=== PATIENT | male | born 1930 | race Caucasian/White ===

== ENCOUNTER 2016-12-19 13:47 | Emergency (ER) | payer MEDICARE, OTHER ==
[~2016-12-19] VITALS: Ht 175.3 cm; Wt 83.9 kg
[~2016-12-19 13:47] MED LIST: ACET325T38 PO; ACYC800T PO; ALBU2.5V52 INH; AMLO10TA4 PO; ASPI-892 PO; CHOL5000 PO; CRV25T PO; DIAZ10TA PO; DOXY100C2 PO; FRSM40T PO; IBAN150T5 PO; IBUP-1773 PO; ISOS30TA3 PO; LISI5TAB14 PO; Levofloxacin PO; MAGN-47 PO; MULT-1029 PO; NITR-65 PO; NITR0.4T SL; PRED10TA PO; PRED20TA PO; RANI300T4 PO; RIVA1PAT4 TD; SIMV20TA PO; TAMS0.4C9 PO; THYR60TA2 PO; TOLT4CAP PO; TR1C15 TOP
--- OUTSIDE RECORDS SUMMARY | 2016-12-19 13:52 | XMS REPORT | Continuity of Care Document ---
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 09/11/2014 DEA HOWE MD 300.00 ANXIETY STATE UNSPECIFIED 09/11/2014 DEA HOWE MD 427.31 ATRIAL FIBRILLATION 09/11/2014 DEA HOWE MD 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 (PERIPHERAL) INSUFFICIENCY UNSPECIFIED 09/11/2014 DEA HOWE MD 536.8 DYSPEPSIA AND OTHER SPECIFIED DISORDERS OF FUNCTION OF STOMACH 09/11/2014 DEA HOWE MD 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 AND OTHER LOWER URINARY TRACT SYMPTOMS (LUTS) 09/11/2014 DEA HOWE MD 054.10 GENITAL HERPES UNSPECIFIED 09/11/2014 DEA HOWE MD 244.9 UNSPECIFIED ACQUIRED HYPOTHYROIDISM 09/11/2014 DEA HOWE MD 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 09/11/2014 DEA HOWE MD 300.00 ANXIETY STATE UNSPECIFIED 09/11/2014 DEA HOWE MD 427.31 ATRIAL FIBRILLATION 09/11/2014 DEA HOWE MD 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 (PERIPHERAL) INSUFFICIENCY UNSPECIFIED 09/11/2014 DEA HOWE MD 536.8 DYSPEPSIA AND OTHER SPECIFIED DISORDERS OF FUNCTION OF STOMACH 09/11/2014 DEA HOWE MD 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 AND OTHER LOWER URINARY TRACT SYMPTOMS (LUTS) 09/11/2014 DEA HOWE MD 054.10 GENITAL HERPES UNSPECIFIED 09/11/2014 DEA HOWE MD 244.9 UNSPECIFIED ACQUIRED HYPOTHYROIDISM 09/11/2014 DEA HOWE MD 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 09/11/2014 DEA HOWE MD 300.00 ANXIETY STATE UNSPECIFIED 09/11/2014 DEA HOWE MD 427.31 ATRIAL FIBRILLATION 09/11/2014 DEA HOWE MD 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 (PERIPHERAL) INSUFFICIENCY UNSPECIFIED 09/11/2014 DEA HOWE MD 536.8 DYSPEPSIA AND OTHER SPECIFIED DISORDERS OF FUNCTION OF STOMACH 09/11/2014 DEA HOWE MD 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 AND OTHER LOWER URINARY TRACT SYMPTOMS (LUTS) 09/11/2014 DEA HOWE MD 054.10 GENITAL HERPES UNSPECIFIED 09/11/2014 DEA HOWE MD 244.9 UNSPECIFIED ACQUIRED HYPOTHYROIDISM 09/11/2014 DEA HOWE MD 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 09/11/2014 DEA HOWE MD 300.00 ANXIETY STATE UNSPECIFIED 09/11/2014 DEA HOWE MD 427.31 ATRIAL FIBRILLATION 09/11/2014 DEA HOWE MD 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 (PERIPHERAL) INSUFFICIENCY UNSPECIFIED 09/11/2014 DEA HOWE MD 536.8 DYSPEPSIA AND OTHER SPECIFIED DISORDERS OF FUNCTION OF STOMACH 09/11/2014 DEA HOWE MD 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 AND OTHER LOWER URINARY TRACT SYMPTOMS (LUTS) 10/06/2014 DEA HOWE MD 702.19 OTHER SEBORRHEIC KERATOSIS 10/06/2014 DEA HOWE MD 702.19 OTHER SEBORRHEIC KERATOSIS 10/06/2014 DEA HOWE MD 702.19 OTHER SEBORRHEIC KERATOSIS 11/12/2014 DEA HOWE MD 780.79 OTHER MALAISE AND FATIGUE 11/12/2014 DEA HOWE MD 780.79 OTHER MALAISE AND FATIGUE 12/18/2014 DEA HOWE MD 465.9 ACUTE UPPER RESPIRATORY INFECTIONS OF UNSPECIFIED SITE 01/12/2015 Ot 054.10 01/12/2015 Ot 244.9 01/12/2015 Ot 276.1 01/12/2015 Ot 294.20 01/12/2015 Ot 300.00 01/12/2015 Ot 397.0 01/12/2015 Ot 414.00 01/12/2015 Ot 414.8 01/12/2015 Ot 416.8 01/12/2015 Ot 424.0 01/12/2015 Ot 428.0 01/12/2015 Ot 428.23 01/12/2015 Ot 491.21 01/12/2015 Ot 530.81 01/12/2015 Ot 731.0 01/12/2015 Ot 799.02 01/12/2015 Ot V04.81 01/12/2015 Ot V45.01 01/12/2015 Ot V45.81 02/12/2015 SHYAM HARVEY, DEA 414.00 CORONARY ATHEROSCLEROSIS OF UNSPECIFIED TYPE OF VESSEL [place] OR GRAFT 07/08/2015 JHOAN HARVEY, HOLLI T Ot 246.9 07/08/2015 JHOAN HARVEY, HOLLI T Ot 599.0 07/08/2015 JHOAN HARVEY, HOLLI T Ot 719.41 07/08/2015 JHOAN HARVEY, HLOLI T Ot 920 07/08/2015 JHOAN HARVEY, HOLLI T Ot E000.8 07/08/2015 JHOAN HARVEY, HOLLI T Ot E849.7 07/08/2015 JHOAN HARVEY, HOLLI T Ot E888.9 10/20/2015 SEKOU HARVEY, MARIA R Mathew Ot F03.90 UNSPECIFIED DEMENTIA WITHOUT BEHAVIORAL 10/20/2015 MARIA R SAPP MD Ot 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, CERVICAL REGION 10/20/2015 MARIA R SAPP MD Ot S01.01XA LACERATION WITHOUT FOREIGN BODY OF SCALP 10/20/2015 MARIA R SAPP MD Ot S06.4X0A EPIDURAL HEMORRHAGE W/O LOSS OF CONSCIOU 10/20/2015 MARIA R SAPP MD Ot S51.812A LACERATION WITHOUT FOREIGN BODY OF LEFT 10/20/2015 MARIA R SAPP MD Ot W01.0XXA FALL SAME LEV FROM SLIP/TRIP W/O STRIKE 10/20/2015 MARIA R SAPP MD Ot Y92.[address] IN CORRECTION PLACE 10/20/2015 MARIA R SAPP MD Ot Y99.8 OTHER EXTERNAL CAUSE STATUS 10/20/2015 MARIA R SAPP MD Ot Z79.82 SODA DIALYZER (CURRENT) USE OF ASPIRIN 10/20/2015 SEKOU HARVEY, MARIA R Mathew Ot Z79.899 OTHER SODA DIALYZER (CURRENT) DRUG THERAPY 10/18/2016 NICKI, LANA J PERINATAL SOCIAL WORKER Ot R13.12 DYSPHAGIA, OROPHARYNGEAL PHASE 10/19/2016 NICKI, LANA J PERINATAL SOCIAL WORKER Ot E04.1 NONTOXIC SINGLE THYROID NODULE 10/19/2016 NICKI, LANA J PERINATAL SOCIAL WORKER Ot 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 10/19/2016 NICKI, LANA J PERINATAL SOCIAL WORKER Ot K11.7 DISTURBANCES OF SALIVARY SECRETION 10/19/2016 NICKI, LANA J PERINATAL SOCIAL WORKER Ot R13.12 DYSPHAGIA, OROPHARYNGEAL PHASE 10/19/2016 NICKI, LANA J PERINATAL SOCIAL WORKER Ot R49.0 DYSPHONIA 11/16/2016 NICKI, LANA J PERINATAL SOCIAL WORKER Ot E04.1 NONTOXIC SINGLE THYROID NODULE 11/16/2016 NICKI, LANA J PERINATAL SOCIAL WORKER Ot 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 11/16/2016 NICKI, LANA J PERINATAL SOCIAL WORKER Ot K11.7 DISTURBANCES OF SALIVARY SECRETION 11/16/2016 NICKI, LANA J PERINATAL SOCIAL WORKER Ot R13.12 DYSPHAGIA, OROPHARYNGEAL PHASE 11/16/2016 NICKI, LANA J PERINATAL SOCIAL WORKER Ot R49.0 DYSPHONIA 12/07/2016 NICKI, LANA J PERINATAL SOCIAL WORKER Ot E04.1 NONTOXIC SINGLE THYROID NODULE 12/07/2016 NICKI, LANA J PERINATAL SOCIAL WORKER Ot 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 12/07/2016 NICKI, LANA J PERINATAL SOCIAL WORKER Ot K11.7 DISTURBANCES OF SALIVARY SECRETION 12/07/2016 NICKI, LANA J PERINATAL SOCIAL WORKER Ot R13.12 DYSPHAGIA, OROPHARYNGEAL PHASE 12/07/2016 NICKI, LANA J PERINATAL SOCIAL WORKER Ot R49.0 DYSPHONIA Procedures Code Description [place] [address] ROUTINE VENIPUNCTURE 10/06/2014 02209 [facility] 10/06/2014 3521220 GFR CALC (RESULT ONLY) 10/06/2014 87501 PSA TOTAL 2013 Results Test Result Range [id number] - 10/18/16 10:34 Serum or plasma urea nitrogen measurement (mass/volume) 12 mg/dL 7-18 Serum or plasma creatinine measurement (mass/volume) 0.94 mg /dL 0.60-1.30 Serum or plasma urea nitrogen/creatinine mass ratio 13 NRG Serum or plasma creatinine measurement with calculation of estimated glomerular filtration rate > NRG Encounters ACCT No. Visit Date/Time Discharge Status Pt. Type Provider Facility Loc./Unit Complaint [id number] 02/12/2015 15:03:00 02/12/2015 23: 59:59 [facility] Out[facility] DEA HOWE MD [id number] 11/12/2014 16:43:00 11/12/2014 23: 59:59 [facility] DEA HOWE MD [id number] 10/06/2014 10:15:00 10/06/2014 23: 59:59 [facility] Out[facility] DEA HOWE MD [id number] 09/11/2014 14:05:00 09/11/2014 23: 59:59 [facility] DEA HOWE MD
[2016-12-19 13:58] VITALS: BP 191/116
[2016-12-19] MEDS ORDERED: RT-ALBUTEROL/IPRATROPIUM 3 ML (DUONEB) VIAL INH ONE (14:00)
[2016-12-19] MEDS ORDERED: DEXAMETHASONE 4 MG/ML SDV (DECADRON) IH ONE (14:00)
[2016-12-19] MEDS ORDERED: methylPREDNISolone 125 MG (Solu-MEDROL) VIAL IVP ONE (14:00)
[2016-12-19] MEDS ORDERED: DEXAMETHASONE PF 10 MG/ML (DECADRON) VIAL ONE (14:02)
[2016-12-19] MEDS ORDERED: DEXAMETHASONE PF 10 MG/ML (DECADRON) VIAL INH STA (14:04)
[2016-12-19 14:07] LABS: BASOPHILS # (AUTO) 0.1 10^3/uL (0.0-0.1); BASOPHILS % (AUTO) 1 % (0-10); EOSINOPHILS # (AUTO) 0.4 10^3/uL (0.0-0.3); EOSINOPHILS % (AUTO) 4 % (0-10); LYMPHOCYTES % (AUTO) 10 % (12-44); MEAN CORPUSCULAR HEMOGLOBIN 33 PG (25-34); MEAN CORPUSCULAR HGB CONC 34 G/DL (32-36); MEAN CORPUSCULAR VOLUME 97 FL (80-99); MEAN PLATELET VOLUME 9.9 FL (7.4-10.4); MONOCYTES # (AUTO) 0.8 X 10^3 (0.0-1.0); MONOCYTES % (AUTO) 8 % (0-12); NEUTROPHILS # (AUTO) 7.9 X 10^3 (1.8-7.8); NEUTROPHILS % (AUTO) 77 % (42-75); PLATELET COUNT 164 10^3/uL (130-400); RED BLOOD COUNT 4.44 10^6/uL (4.35-5.85); RED CELL DISTRIBUTION WIDTH 13.9 % (10.0-14.5); WHITE BLOOD COUNT 10.1 10^3/uL (4.3-11.0)
[2016-12-19 14:13] LABS: INR 1.2 (0.8-1.4); PROTHROMBIN TIME PATIENT 15.2 SEC (12.2-14.7)
[2016-12-19 14:15] LABS: ABG BASE EXCESS 0.4 MMOL/L (-2.5-2.5); ABG HCO3 30 MMOL/L (23-27); ABG OXYGEN SATURATION 99 % (94-100); ABG PO2 168 MMHG (79-93); ABG TCO2 32.2 MMOL/L (21.0-31.0)
[2016-12-19 14:17] LABS: ABG PCO2 77 MMHG (35-45); ABG PH 7.21 (7.37-7.43)
[2016-12-19 14:18] VITALS: BP 163/86
[2016-12-19 14:18] LABS: ALLENS TEST YES-POS
--- NOTE | 2016-12-19 14:21 | Diagnostic Imaging Report ---
INDICATION: Shortness of breath. Portable chest 2:12 PM. There are postop changes from CABG surgery. There is a unipolar pacemaker. Heart is mildly enlarged. Pulmonary vascularity is normal. Lungs are clear. IMPRESSION: No acute abnormalities in the chest. Dictated by: Dictated on workstation # [id number]
[2016-12-19 14:23] LABS: ALANINE AMINOTRANSFERASE 13 U/L (0-55); ALBUMIN 4.2 G/DL (3.2-4.5); ANION GAP 11 MMOL/L (5-14); ASPARTATE AMINO TRANSFERASE 21 U/L (5-34); BLOOD UREA NITROGEN 22 MG/DL (7-18); BUN/CREATININE RATIO 18; CALCIUM 9.8 MG/DL (8.5-10.1); CARBON DIOXIDE 28 MMOL/L (21-32); CHLORIDE 98 MMOL/L (98-107); CREATINE KINASE 29 U/L (30-200); GFR ESTIMATED 58; GLUCOSE 114 MG/DL (70-105); MAGNESIUM 2.2 MG/DL (1.8-2.4); POTASSIUM 4.3 MMOL/L (3.6-5.0); SODIUM 137 MMOL/L (135-145); TOTAL PROTEIN 7.4 G/DL (6.4-8.2)
--- NOTE | 2016-12-19 14:25 | ED Respiratory ---
General Chief Complaint: Respiratory Problems Stated Complaint: SOA/UNRESPONSIVE Nursing Triage Note: PT TO [facility] BY [facility] WITH CC OF SOB. PT BROUGHT FROM [facility], COUGH AND CONGESTION THIS PAST WEEKEND, PT WAS FOUND BY STAFF SLUMMPED OVER AND FACE BLUE, UNRESPONSIVE, STAFF MOVED HIM TO HIS BED AND OPENED HIS AIRWAY AND APPLIED O2. PT ARRIVED ON CPAP BY EMS, SKIN PINK AND HOT WITH A TEMP OF 101.0. ONE INCH OF NITRO PASTE APPLIED SPLUNK CONSULTANT BY EMS FOR B/P OF 207/95. PT HAS RAPID LABORED BREATHING WITH JVD. Source: family (DAUGHTER), EMS, EMS notes reviewed, shelter records, old records Exam Limitations: other (PT IS SEMI-OBTUNDED AND UNABLE TO GIVE ANY INFORMATION ) History of Present Illness Time seen by provider: 18:50 Initial Comments PT ARRIVES VIA EMS FROM [facility] PT WAS FOUND SLUMPED OVER IN CHAIR AND WAS CYANOTIC, BUT WAS BREATHING AND DID HAVE A PULSE EMS REPORT THAT PT HAS GURGLING RESPIRATIONS EMS REPORT THAT O2 SAT WAS 90% ON 15L, AND THEY PLACED PT ON CPAP AND O2 SAT UP TO 99% BP FOR EMS WAS 207/95 AND 197/114 AND THEY PLACED 1" NITROPASTE ON PT PT HAS HAD A PRODUCTIVE COUGH FOR A FEW DAYS DAUGHTER REPORTS THAT PT HAD A TEMP OF 100 LAST PM SHE ALSO STATES THAT ALTHOUGH HE DID HAVE A COUGH YESTERDAY MORNING, HIS MENTATION WAS FINE YESTERDAY MORNING. PCP: DR. HOWE Allergies and Home Medications Allergies Coded Allergies: No Known Drug Allergies (Unverified , 01/07/15) Home Medications 750 MG TABLET 2Days 750 MG PO DAILY@1100 Prescribed by: DEA HOWE on 01/12/15 1110 Acetaminophen 325 Mg Tablet 650 MG PO Q4H PRN PRN PAIN/TEMP (Reported) Acyclovir 800 Mg Tablet 800 MG PO BID (Reported) Albuterol Sulfate 2.5 Mg/3 Ml Nebu 2.5 MG INH Q6H PRN PRN SHORTNESS OF BREATH ( Reported) Aspirin 81 Mg Tabec 81 MG PO DAILY (Reported) Carvedilol 25 Mg Tablet 12.5 MG PO BID (Reported) Cholecalciferol 5,000 Unit Capsule 5,000 UNIT PO DAILY (Reported) Diazepam 10 Mg Tablet 20 MG PO HS (Reported) TAKES 2 (10MG) TABLETS Furosemide 40 Mg Tab 30Days 40 MG PO DAILY Prescribed by: DEA HOWE on 01/12/15 1110 Ibandronate Sodium 150 Mg Tablet 150 MG PO MONTHLY ON THE (Reported) Ibuprofen 600 Mg Tablet 600 MG PO Q6H PRN PRN PAIN/TEMP (Reported) Isosorbide Mononitrate 30 Mg Tab.sr.24h 30 MG PO DAILY (Reported) Lisinopril 5 Mg Tablet 30Days 5 MG PO DAILY Prescribed by: DEA HOWE on 01/12/15 111 Magnesium Hydroxide 400 Mg/5 Ml Oral.susp 30 ML PO DAILY PRN PRN CONSTIPATION ( Reported) Mu-Vits-Min Th/Lycopene/Lutein 1 Each Tablet 1 TAB PO DAILY (Reported) Nitrofurantoin Monohyd/M-Cryst 100 Mg Capsule #14 1 TAB PO BID Prescribed by: HOLLI HERNANDEZ on 07/08/15 1115 Nitroglycerin 0.4 Mg Tab.subl 0.4 MG SL UD PRN PRN CHEST PAIN (Reported) GIVE 1 TAB EVERY 5 MINUTES X 3 DOSES NEEDED FOR CHEST PAIN Prednisone 10 Mg Tablet #42 0 PO UD 60mg daily for 2 days 50mg daily for 2 days 40mg daily for 2 days 30mg daily for 2 days 20mg daily for 2 days 10mg daily for 2 days then stop Prescribed by: DEA HOWE on 01/12/15 1110 Ranitidine Hcl 300 Mg Tablet 300 MG PO DAILY (Reported) Rivastigmine 1 Each Patch.td24 9.5 MG TD DAILY (Reported) Simvastatin 20 Mg Tablet 20 MG PO HS (Reported) Tamsulosin HCl 0.4 Mg Cap.er.24h 0.4 MG PO HS (Reported) Thyroid 60 Mg Tablet 60 MG PO BID (Reported) Tolterodine Tartrate 4 Mg Cap.er.24h 8 MG PO HS (Reported) TAKES 2 (4MG) CAPSULES Triamcinolone Acet 15 Gm Cr TOP BID (Reported) APPLY TO LEFT HAND AND FINGERS Constitutional: other (PER HPI--PT UNABLE TO GIVE ANY INFORMATION ON ARRIVAL) Past [place]-Cjcgdi-Anvksi Hx Patient Social History Alcohol Use: Past History (HISTORY OF ABUSE/HEAVY USE) Recreational Drug Use: No Recent Foreign Travel: No Contact w/Someone Who Travel: No Recent Infectious Disease Expo: No Recent Hopitalizations: No Immunizations Up To Date Tetanus Booster (TDap): Unknown Date of Pneumonia Vaccine: Dec 28, 2000 Date of Influenza Vaccine: Jan 09, 2015 Seasonal Allergies Seasonal Allergies: No Surgeries HX Surgeries: Yes (3 VESSEL CABG) Surgeries: Appendectomy, Cardiac, CABG, Gallbladder, Pacemaker, Tonsillectomy Respiratory Hx Respiratory Disorders: Yes Respiratory Disorders: Pneumonia Cardiovascular Hx Cardiac Disorders: Yes (3 VESSEL CABG, CHF) Cardiac Disorders: Atrial Fibrillation, Cardiomyopathy, Chronic Edema/Swelling , Coronary Artery Disease, Heart Attack, High Cholesterol, Hypertension Neurological Hx Neurological Disorders: Yes Neurological Disorders: Dementia Reproductive System Hx Reproductive Disorders: No Sexually Transmitted Disease: Yes (HERPES) HIV/AIDS: No Genitourinary Hx Genitourinary Disorders: Yes (BLADDER HYPERTONICITY) Genitourinary Disorders: Prostate Problems Gastrointestinal Hx Gastrointestinal Disorders: Yes (S/P GONZAELZ, UNSPECIFIED STOMACH DISORDER) Gastrointestinal Disorders: Gall Bladder Disease Musculoskeletal Hx Musculoskeletal Disorders: Yes (PAGET'S DISEASE) Musculoskeletal Disorders: Arthritis Endocrine Hx Endocrine Disorders: Yes (OBESITY) Endocrine Disorders: Hypothyroidsim HEENT HX ENT Disorders: No Loss of Vision: Denies Hearing Impairment: Hard of Hearing Cancer Hx Cancer: Yes Cancer: Skin Psychosocial Hx Psychiatric Problems: Yes Behavioral Health Disorders: Sleep Difficulties, Anxiety Integumentary HX Skin/Integumentary Disorder: Yes (60 YEARS AGO) Skin/Integumentary Disorders: Herpes Blood Transfusions Hx Blood Disorders: No Adverse Reaction to a Blood Tr: No Family Medical History Family Medial History: Cardiovascular disease 19 FATHER 19 MOTHER Cataracts 19 MOTHER Completed stroke 19 MOTHER Coronary thrombosis 19 FATHER Hypercholesterolemia 19 FATHER Hypertension 19 FATHER Myocardial infarction 19 FATHER Neoplasm 19 MOTHER Visual disorder 19 FATHER 19 MOTHER No Family History of: AIDS Abdominal aortic aneurysm [place]'s disease Alcoholism Alzheimer's disease Aphasia Arthritis Asthma Cancer of mouth Colon cancer Congenital disease Congenital heart disease Cystic fibrosis Deafness or hearing loss Dementia Diabetes mellitus Drug abuse Dysphasia Fibrocystic disease of breast Gastroenteritis Glaucoma Headache disorder Infertility Kidney disease Not obtainable due to adoption Osteoporosis Parkinson's disease Prostate cancer Psychosocial problem Respiratory disorder Seizure disorder Severe allergy Thyroid disease Tuberculosis Physical Exam Vital Signs Vital Sign - Last 12Hours 12/19/16 12/19/16 13:58 14:03 Temp 101.0 Pulse 94 Resp 33 B/P 191/116 Pulse Ox 95 O2 Delivery NIV/CPAP O2 Flow Rate 50 FiO2 50 Capillary Refill : Greater Than 3 Seconds General Appearance: other (PT SEMI-OBTUNDED/VERY LETHARGIC, VERY DYSPNEIC, MOANING) severe distress HEENT: PERRL/EOMI Neck: other (SEVERE JVD) Respiratory: respiratory distress decreased breath sounds (IN ALL LUNG COLLAZO ) other (TACHYPNEIC, VERY LABORED BREATHING) Cardiovascular: tachycardia irregularly irregular Gastrointestinal: soft Extremities: pedal edema (TRACE EDEMA WITH FLACA HOSE ON ) Neurologic/Psychiatric: other (MOVES ALL EXTREMITIES. PT UNABLE TO TALK OR FOLLOW COMMANDS. PT DOES NOT APPEAR TO RECOGNIZE ME ( HE HAS KNOWN ME ALL OF MY LIFE) ) Skin: other (VERY WARM) Progress/Results/Core Measures Results/Orders Lab Results Laboratory Tests Test 12/19/16 13:55 12/19/16 13:56 12/19/16 16:40 Range/Units Activated Partial Thromboplast Time 31 24-35 SEC Alanine Aminotransferase (ALT/SGPT) 13 0-55 U/L Albumin 4.2 3.2-4.5 G/DL Alkaline Phosphatase 87 40-136 U/L Anion Gap 11 5-14 MMOL/L Aspartate Amino Transf (AST/SGOT) 21 5-34 U/L B-Type Natriuretic Peptide 297.4 H <100.0 PG/ML BUN/Creatinine Ratio 18 Basophils # (Auto) 0.1 0.0-0.1 10^3/uL Basophils (%) (Auto) 1 0-10 % Blood Urea Nitrogen 22 H 7-18 MG/DL Calcium Level 9.8 8.5-10.1 MG/DL Carbon Dioxide Level 28 21-32 MMOL/L Chloride Level 98 98-107 MMOL/L Creatine Kinase MB 1.8 <6.6 NG/ML Creatinine 1.20 0.60-1.30 MG/DL Eosinophils # (Auto) 0.4 H 0.0-0.3 10^3/uL Eosinophils (%) (Auto) 4 0-10 % Estimat Glomerular Filtration Rate 58 Glucose Level 114 H 70-105 MG/DL Hematocrit 43 40-54 % Hemoglobin 14.6 13.3-17.7 G/DL INR Comment 1.2 0.8-1.4 Lactic Acid Level 0.7 0.5-2.0 MMOL/L Lymphocytes # (Auto) 1.0 1.0-4.0 X 10^3 Lymphocytes (%) (Auto) 10 L 12-44 % Magnesium Level 2.2 1.8-2.4 MG/DL Mean Corpuscular Hemoglobin 33 25-34 PG Mean Corpuscular Hemoglobin Concent 34 32-36 G/DL Mean Corpuscular Volume 97 80-99 FL Mean Platelet Volume 9.9 7.4-10.4 FL Monocytes # (Auto) 0.8 0.0-1.0 X 10^3 Monocytes (%) (Auto) 8 0-12 % Neutrophils # (Auto) 7.9 H 1.8-7.8 X 10^3 Neutrophils (%) (Auto) 77 H 42-75 % Platelet Count 164 130-400 10^3/uL Potassium Level 4.3 3.6-5.0 MMOL/L Prothrombin Time 15.2 H 12.2-14.7 SEC Red Blood Count 4.44 4.35-5.85 10^6/uL Red Cell Distribution Width 13.9 10.0-14.5 % Sodium Level 137 135-145 MMOL/L Total Bilirubin 1.0 0.1-1.0 MG/DL Total Creatine Kinase 29 L 30-200 U/L Total Protein 7.4 6.4-8.2 G/DL Troponin I < 0.30 <0.30 NG/ML White Blood Count 10.1 4.3-11.0 10^3/uL Fede Test YES-POS Arterial Blood Base Excess 0.4 -2.5-2.5 MMOL/L Arterial Blood HCO3 30 H 23-27 MMOL/L Arterial Blood Oxygen Saturation 99 94-100 % Arterial Blood Partial Pressure CO2 77 *H 35-45 MMHG Arterial Blood Partial Pressure O2 168 H 79-93 MMHG Arterial Blood Total CO2 32.2 H 21.0-31.0 MMOL/L Arterial Blood pH 7.21 *L 7.37-7.43 Blood Gas Inspired Oxygen 15 Blood Gas Patient Temperature 101.0 Blood Gas Puncture Site L RADIAL Blood Gas Ventilator Setting NO Urine Bacteria TRACE /HPF Urine Bilirubin NEGATIVE NEGATIVE Urine Casts PRESENT /LPF Urine Clarity CLEAR Urine Color YELLOW Urine Crystals NONE /LPF Urine Culture Indicated NO Urine Glucose (UA) NEGATIVE NEGATIVE Urine Hyaline Casts 2-5 H /LPF Urine Ketones NEGATIVE NEGATIVE Urine Leukocyte Esterase NEGATIVE NEGATIVE Urine Mucus NEGATIVE /LPF Urine Nitrite NEGATIVE NEGATIVE Urine Protein NEGATIVE NEGATIVE Urine RBC NONE /HPF Urine RBC (Auto) NEGATIVE NEGATIVE Urine Specific [place] 1.015 L 1.016-1.022 Urine Squamous Epithelial Cells RARE /HPF Urine Urobilinogen NORMAL NORMAL MG/DL Urine WBC 0-2 /HPF Urine pH 5 5-9 Micro Results Microbiology 12/19/16 Blood Culture - Preliminary, Resulted No growth 12/19/16 Blood Culture - Preliminary, Resulted Staph, Coag Neg (Breaker Off) My Orders Orders-RAE INFANTE DO Arterial Blood Gas (12/19/16 13:59) BNP (12/19/16 13:59) Cbc With Automated Diff (12/19/16 13:59) Comprehensive Metabolic Panel (12/19/16 13:59) Creatine Kinase (12/19/16 13:59) Creatine Kinase Mb (12/19/16 13:59) Lactic Acid Analyzer (12/19/16 13:59) Magnesium (12/19/16 13:59) Protime With Inr (12/19/16 13:59) Partial Thromboplastin Time (12/19/16 13:59) Troponin I (12/19/16 13:59) Ua Culture If Indicated (12/19/16 13:59) Blood Culture (12/19/16 13:59) Chest 1 View, Ap/Pa Only (12/19/16 13:59) Albuterol/Ipra Inhalation Soln (Duoneb I (12/19/16 14:00) Dexamethasone Injection (Decadron Inject (12/19/16 14:00) Rt Request For Service (12/19/16 13:59) Svn Sm Volume Nebulizer Rt-Rfs (12/19/16 13:59) Methylprednisolone Sod Succ (Solu-Medrol (12/19/16 14:00) Dexamethasone Pf Injection (Decadron Pf (12/19/16 14:02) Dexamethasone Pf Injection (Decadron Pf (12/19/16 14:04) Catheter(Urinary) Insert & Ass 03,15 (12/19/16 15:22) Ceftriaxone Injection (Rocephin Injectio (12/19/16 16:00) Lorazepam Injection (Ativan Injection) (12/19/16 16:15) Medications Given in ED Vital Signs/I&O Vital Sign - Last 12Hours 12/19/16 12/19/16 12/19/16 12/19/16 13:58 14:03 14:03 14:18 Temp 101.0 Pulse 94 96 88 Resp 33 33 32 B/P 191/116 Pulse Ox 95 95 95 87 O2 Delivery NIV/CPAP O2 Flow Rate 50 50 70 FiO2 50 12/19/16 17:20 Temp 100.0 Pulse 83 Resp 24 Pulse Ox 95 O2 Flow Rate 70 Blood Pressure Mean: 141 Progress Note : Progress Note TEMP DOWN O2 SATS UP, INCREASED AERATION AFTER BIPAP AND NEB TREATMENTS MENTATION IMPROVED AND APPEARS TO RECOGNIZE ME AND RECOGNIZES DAUGHTER AND IS ABLE TO COMMUNICATE A LITTLE WITH YES/NO QUESTIONS TO DAUGHTER DAUGHTER STATES THAT PT HAS REQUESTED IN THE PAST THAT HE WOULD WANT TO BE TRANSFERRED TO [facility], HE HAS ALWAYS GONE THERE. DAUGHTER STATES THAT SHE HAS ASKED HIM NOW IF HE WOULD WANT TO BE TRANSFERRED THERE OR TO STAY HERE, AND HE HAS COMMUNICATED TO HER ( IN PRESENCE OF WITNESSES) THAT HE WANTS TO GO TO [facility] ECG Initial ECG Impression Time: 14:00 Initial ECG Rate: 98 Initial ECG Rhythm: A Fib/Flutter Initial ECG Comparisson: Unchanged Diagnostic Imaging Comments CXR--NO ACUTE PROCESS, PER RADIOLOGIST REPORT @ 1425 Reviewed: Reviewed by Me Departure Communication Progress Notes [id number]--CALLED [facility]. SPOKE WITH DR. SAMANIEGO, ACCEPTS PT FOR ADMIT/TRANSFER Impression Impression: Primary Impression: Acute respiratory failure Additional Impressions: SUSPECTED PNEUMONIA Altered mental status Sepsis Disposition: XFER SHT-TRM HOSP Condition: Improved Departure-Patient Inst. Referrals: DEA HOWE MD (PCP/Family) Primary Care Physician RAE INFANTE DO Dec 19, 2016 14:25
[2016-12-19 14:29] LABS: TROPONIN I < 0.30 NG/ML (<0.30)
[2016-12-19] MEDS ORDERED: cefTRIAXone INJECTION 1,000 MG in NS (IVPB) 50 ML IV ONE (16:00)
[2016-12-19] MEDS ORDERED: LORazepam INJ 2 MG/ML (ATIVAN) VIAL IVP ONE (16:15)
[2016-12-19 16:55] LABS: BILIRUBIN,URINE NEGATIVE (NEGATIVE); KETONES,URINE NEGATIVE (NEGATIVE); LEUKOCYTE ESTERASE ,URINE NEGATIVE (NEGATIVE); NITRITE,URINE NEGATIVE (NEGATIVE); PH,URINE 5 (5-9); PROTEIN,URINE NEGATIVE (NEGATIVE); UROBILINOGEN,URINE NORMAL (NORMAL)
[2016-12-19 17:02] LABS: SQUAMOUS EPITHELIAL CELL,UR RARE /HPF; WBC,URINE 0-2 /HPF
[2016-12-19 17:20] VITALS: BP 154/89
== END 2016-12-19 17:20 | disposition short-term general hospital (02) ==
LOC: EDUNIT# 13:47 → ER 13:48
DX: J96.00 Acute respiratory failure, unspecified whether with hypoxia or hypercapnia (principal); A41.9 Sepsis, unspecified organism; R41.82 Altered mental status, unspecified; I11.9 Hypertensive heart disease without heart failure; E66.9 Obesity, unspecified; Z79.82 Long term (current) use of aspirin; Z79.899 Other long term (current) drug therapy; Z95.1 Presence of aortocoronary bypass graft; Z95.0 Presence of cardiac pacemaker
CPT/HCPCS: 36415; 71010; 80053; 81000; 82550; 82553; 82805; 83605; 83735; 83880; 84484; 85025; 85610; 85730; 87040; 94640; 96365; 96375